=== PATIENT | female | born 1985 | race Caucasian/White ===

== ENCOUNTER → 2022-03-28 | Outpatient (CLI) | payer OTHER ==
[~2022-03-28] MED LIST: LIDOCAINE 1% MDV 20ML VIAL As Ordered ONE
[2022-03-28 13:00] VITALS: BP 148/85
== END ==
LOC: M IRPRO 12:07
PROVIDERS: ATTEND Otolaryngology
DX: E04.2 Nontoxic multinodular goiter (principal)